=== PATIENT | male | born 1995 | race Caucasian/White ===

== ENCOUNTER 2017-03-08 04:06 | Emergency (ER) | payer OTHER ==
[~2017-03-08] VITALS: Ht 165.1 cm; Wt 85.5 kg
[2017-03-08 04:12] VITALS: TEMP 36.9; Ht 165.1 cm; Wt 85.5 kg
--- NOTE | 2017-03-08 04:23 | EMERGENCY ROOM VISIT NOTE ---
History Report prepared by Thelma: Parminder Duvall Under the Supervision of: Dr. Chase Cooper M.D. First contact with patient: 04:15 Chief Complaint: COUGH Stated Complaint: COUGHING UP BLOOD History of Present Illness The patient is a 21 year old male who presents to the Emergency Room with complaints of a persistent cough starting last night after smoking. The patient states that he was smoking a concentrated tobacco. He notes that he was coughing up blood clots with the mucous after coughing for a while. He additionally states that he has been having some lower left chest pain and some upper chest tingling. He denies any vomiting. Source of History: patient Onset: last night Position: other (global) Quality: other (cough) Timing: other (persistent) Associated Symptoms: + chest pain, No vomiting Review of Systems See HPI for pertinent positives & negatives. A total of 10 systems reviewed and were otherwise negative. Family History Patient reports no known family medical history. Social History Smoking Status: Current Every Day Smoker Marital Status: single Housing Status: lives with roommate Occupation Status: [employer] student Current/Historical Medications No Active Prescriptions or Reported Meds Allergies Coded Allergies: No Known Allergies (Unverified , 03/08/17) Physical Exam Vital Signs Date Time Temp Pulse Resp B/P (MAP) Pulse Ox O2 Delivery O2 Flow Rate FiO2 03/08/17 05:40 90 17 135/72 100 03/08/17 04:12 36.9 108 18 142/76 100 Room Air Physical Exam GENERAL: Patient is anxious appearing and in no acute distress. HEENT: No acute trauma, normocephalic atraumatic, mucous membranes moist, no nasal congestion, no scleral icterus. NECK: No stridor, no adenopathy, no meningismus, trachea is midline. LUNGS: No dyspnea. Clear to auscultation and equal bilaterally. No wheeze, no rhonchi. HEART: Regular rate and rhythm. No murmurs, rubs, gallops appreciated. EXTREMITIES: Normal motion all extremities, no cyanosis, no edema. NEUROLOGIC: Alert and oriented, no acute motor or sensory deficits, no focal weakness, cranial nerves grossly intact. SKIN: No rash, no jaundice, no diaphoresis. Medical Decision & Procedures ER Provider Diagnostic Interpretation: X ray results are stated below per my interpretation: 2 view chest: No infiltrate. No pneumothorax. No rib fracture. ED Course 0415: The patient was evaluated in room A10. A complete history and physical exam was performed. 0550: Reevaluated the patient. Discussed results and discharge instructions: he verbalized understanding and agreement. The patient is ready for discharge. Medical Decision 21 yr old healthy male arrives following coughing up some blood. No further issues and this started after he was smoking heavy tobacco. CXR clear without evidence infiltrate nor apical abnormalities. Breathing comfortably. Discussed likely due to harsh coughing and symptoms requiring return. Impression Primary Impression: Cough with hemoptysis Scribe Attestation The scribe's documentation has been prepared under my direction and personally reviewed by me in its entirety. I confirm that the note above accurately reflects all work, treatment, procedures, and medical decision making performed by me. Departure Information Dispostion Home / Self-Care Prescriptions No Active Prescriptions or Reported Meds Referrals No Doctor, Assigned (PCP) Forms HOME CARE DOCUMENTATION FORM, IMPORTANT VISIT INFORMATION Patient Instructions My [facility] Additional Instructions Rest and avoid further smoke inhalation. Keep well hydrated. Use cough drops and syrups as needed. Return if severe chest pain, difficulty breathing, coughing large amounts of blood or other concerns.
[2017-03-08 05:40] VITALS: BP 135/72; PULSE 90; O2SAT 100
--- NOTE | 2017-03-08 06:58 | DIAGNOSTIC IMAGING REPORT ---
CHEST 2 VIEWS ROUTINE CLINICAL HISTORY: 21 years-old Male presenting with Coughed up blood after smoking tobacco. TECHNIQUE: PA and lateral views of the chest were obtained. COMPARISON: None. FINDINGS: Cardiomediastinal silhouette normal. Lungs and pleural spaces clear. Osseous structures normal. Upper abdomen normal. IMPRESSION: 1. No acute cardiopulmonary disease. Electronically signed by: Cj Orosco M.D. 03/08/2017 6:56 AM Dictated Date/Time: 03/08/2017 6:55 AM
== END 2017-03-08 05:41 | disposition home or self-care (01) ==
LOC: C.EDB 04:07 → C.EDA 05:41
DX: R04.2 Hemoptysis (principal); F17.200 Nicotine dependence, unspecified, uncomplicated